=== PATIENT | female | born 1965 | race Caucasian/White ===

== ENCOUNTER → 2018-04-08 | Outpatient (CLI) | payer BC ==
--- NOTE | 2018-04-08 14:15 | US ---
EXAMINATION TYPE: US gallbladder DATE OF EXAM: 04/08/2018 COMPARISON: NONE CLINICAL HISTORY: 52-year-old female R10.11 RUQ Abdominal pain. TECHNIQUE: Multiple sonographic images of the right upper quadrant are obtained. FINDINGS: EXAM MEASUREMENTS: Liver Length: 14.2 cm Gallbladder Wall: 0.1 cm CBD: 0.3 cm Right Kidney: 10.4 x 3.3 x 4.9 cm Pancreas: Obscured by bowel gas Liver: Elongated hypoechoic area in the left lobe measuring 2.4 x 6.7 x 1.5 cm. Small cyst left lobe 1.1 x 1.0 x 0.8 cm. Mild to moderate increased echogenicity suggesting fatty infiltration. Gallbladder: wnl Evidence for sonographic Doran's sign: No CBD: wnl Right Kidney: cyst mid lateral 4.3 x 3.8 x 4.8 cm. No hydronephrosis. IMPRESSION: An elongated area of hypoechogenicity measuring 6.7 x 2.4 cm within the left liver lobe. Exact etiolo gy is unclear. Possible geographic fatty sparing or sequela of prior trauma. Multiphasic liver CT or MRI recommended to further evaluate.
--- NOTE | 2018-04-08 23:07 | BD ---
EXAMINATION TYPE: Axial Bone Density DATE OF EXAM: 04/08/2018 COMPARISON: NONE CLINICAL HISTORY: 52-year-old female screening for osteoporosis Height: 67 Weight: 205.4 FRAX RISK QUESTIONS: Alcohol (3 or more units per day): no Family History (Parent hip fracture): no Glucocorticoids (More than 3mos): no (Ex: prednisone, prednisolone, methylprednisolone, dexamethasone, and hydrocortisone). History of Fracture in Adulthood: no Secondary Osteoporosis: 1. Type 1 Diabetes: no 2. Hyperthyroidism: no 3. Menopause before 45: no 4. Malnutrition: no 5. Chronic liver disease: no Rheumatoid Arthritis: no Current Tobacco Use: no RISK FACTORS HISTORY OF: Family History of Osteoporosis: yes Active: yes Diet low in dairy products/other sources of calcium: yes Postmenopausal woman: age 46 Lost more than 2 inches in height since high school: just two inches MEDICATIONS: losartan, duloxetine, pantoprazole, norvasc, gabapentin, lipitor, lasix, potassium chloride, ultram, narco Additional History: EXAM MEASUREMENTS: Bone mineral densitometry was performed using the [employer] System. Bone mineral density as measured about the Lumbar spine is: ----- L1-L4(G/cm2): 1.501 T Score Values are as follows: ----- L2: 2.6 ----- L3: 2.6 ----- L4: 2.7 ----- L1-L4: 2.7 Bone mineral density : baseline Bone mineral density about the R hip (g/cm2): 1.069 Bone mineral density about the L hip (g/cm2): 1.095 T Score values are as follows: -----R Neck: 0.2 -----L Neck: 0.4 -----R Total: 0.4 -----L Total: 0.6 Bone mineral density : baseline IMPRESSION: Normal (Values between +1 and -1 indicate normal bone mass). Consider repeating this study in 5 year s or sooner if there is some new clinical indication. NOTE: T-SCORE=SD OF THE YOUNG ADULT MEAN.
--- NOTE | 2018-04-09 13:09 | MM ---
Reason for exam: screening (asymptomatic). Last mammogram was performed 1 year and 1 month ago. Physical Findings: A clinical breast exam by your physician is recommended on an annual basis and results should be correlated with mammographic findings. MG Screening Mammo w CAD Bilateral CC and MLO view(s) were taken. Prior study comparison: March 22, 2017, bilateral MG screening mammo w CAD. March 23, 2016, left breast MG work up mamm w CAD LT. There are scattered fibroglandular densities. There is a stable right upper outer quadrant mas with calcifications back to 2011, likely fibroadenoma. No suspicious abnormality. ASSESSMENT: Benign, BI-RAD 2 RECOMMENDATION: Routine screening mammogram of both breasts in 1 year.
== END | disposition home or self-care (01) ==
LOC: RADMAMWWP 09:58
PROVIDERS: ATTEND Obstetrics & Gynecology
DX: Z12.31 Encounter for screening mammogram for malignant neoplasm of breast (principal); R93.2 Abnormal findings on diagnostic imaging of liver and biliary tract; Z78.0 Asymptomatic menopausal state; R10.11 Right upper quadrant pain
CPT/HCPCS: 76705; 77067; 77080

== ENCOUNTER → 2018-11-19 | Outpatient (CLI) | payer BC ==
--- NOTE | 2018-11-19 22:58 | CT ---
EXAMINATION TYPE: CT abdomen pelvis wo con DATE OF EXAM: 11/19/2018 COMPARISON: None HISTORY: 53-year-old female R10.9, unspecified abdominal pain CT DLP: 1020.4 mGycm. Automated exposure control for dose reduction was used. TECHNIQUE: Contiguous axial scanning of the abdomen and pelvis without IV contrast. Coronal and sagit hyun reconstructions performed. FINDINGS: Heart normal size with trace pericardial effusion. Lung bases clear without pleural effusion. 1 cm hypodensity mid liver to small for accurate CT characterization, likely cyst. The liver is enlar ged measuring 21.2 cm with diffuse low-attenuation and areas of fatty sparing along the abbey hepatis and gallbladder fossa. Gallbladder, right adrenal gland,, spleen, and pancreas show no gross abnormality by noncontrast CT. There is a 4.7 cm cyst within the right kidney. Suspect an additional 1.6 cm anterior lower pole cyst . There is a contour protuberance along the lateral aspect of the left kidney that could represent a dr omedary hump or underlying mass. Nodule involving the left adrenal gland measures 2.6 cm. This shows low-attenuation of -8 Hounsfield units and a small intrinsic nodule of fat density. No dilated small bowel, free fluid, or free air. No mesenteric or retroperitoneal lymphadenopathy. Normal appendix. No significant stool burden. Mild sigmoid diverticulosis. Redundant sigmoid colon. Bladder is urine distended. Uterus and both ovaries are visualized. No abnormal fluid collection in t he pelvis or pelvic lymphadenopathy. Pelvic floor relaxation is noted. Bones: Mild degenerative changes at the hips. Multilevel moderate to advanced degenerative disc disea se lumbar spine with hypertrophic facet arthropathy and grade 1 retrolisthesis from L1 through L4 lev els. IMPRESSION: 1. Hepatomegaly (21.2 cm) with hepatic steatosis. Correlate with LFTs, lipid profile, and patient ri sk factors. 2. A 2.6 cm left adrenal nodule. Given the low density and intrinsic factor, lipid rich adrenal jeremías srini or adrenal myelolipoma are the differential considerations. 3. Focal contour protuberance along the lateral aspect of the left kidney could represent a solid ma ss or dromedary hump. Consider renal ultrasound to attempt further characterization. If this remains indeterminate on ultrasound, 3-6 month follow-up contrast enhanced CT can be performed. 4. Sigmoid diverticulosis without acute diverticulitis. 5. Pelvic floor relaxation. 6. Moderate to advanced degenerative disc disease with multilevel grade 1 spondylolistheses in the l umbar spine.
== END | disposition home or self-care (01) ==
LOC: RADCTMAIN 15:00
PROVIDERS: ATTEND Family Medicine
DX: K57.30 Diverticulosis of large intestine without perforation or abscess without bleeding (principal); K76.0 Fatty (change of) liver, not elsewhere classified
CPT/HCPCS: 74176

== ENCOUNTER 2019-02-20 08:28 | Day surgery (SDC) | payer BC ==
[2019-02-18 12:12] VITALS: BMI 33.4
[~2019-02-20 08:28] MED LIST: LACTATED RINGERS 1,000 ML IV SCH; LIDOCAINE 1% 20 ML VIAL (10MG/ML) FOR IV START INTRADERMA PRN
[2019-02-20 08:55] VITALS: RESP 16; TEMP 97
[2019-02-20] MEDS ORDERED: LIDOCAINE 1% INJ 10MG/ML (20 ML MDV) ONE (08:56)
[2019-02-20] MEDS ORDERED: PROPOFOL 10 MG/ML 20 ML VIAL IV ONE (08:56)
--- NOTE | 2019-02-20 09:23 | P.PCN ---
Date of Procedure: 02/20/19 Description of Procedure: BRIEF HISTORY: Patient is a 53-year-old, pleasant, female patient who presents for evaluation of epigastric pain. She reports being on Prevacid for one year with good symptom relief. She denies any reflux symptoms. She was recently switched to Protonix daily with continued epigastric pain. PROCEDURE PERFORMED: Esophagogastroduodenoscopy with biopsy. PREOPERATIVE DIAGNOSIS: Epigastric abdominal pain. ESTIMATED BLOOD LOSS: Minimal. IV sedation per anesthesia. PROCEDURE: After informed consent was obtained, the patient was brought into the endoscopy unit. IV sedation was administered by Anesthesia under continuous monitoring. Initially the Olympus GIF-190 video endoscope was inserted into the mouth. Esophagus intubated without any difficulty. It was gradually advanced into the stomach and duodenum and carefully examined. The bulb and the second part of the duodenum appeared normal with biopsies taken. The scope at this time was withdrawn to the stomach, adequately insufflated with air, and upon careful examination, mucosa of the antrum, body, cardia and the fundus appeared normal, except for some mild scattered punctate erythema suggestive of mild gastritis with biopsies taken of the antrum and body. The scope was then withdrawn into the esophagus. The GE junction was located at 44 cm from the incisors, with biopsies taken. The esophagus appeared normal. There were no erosions or ulcerations seen and the patient tolerated the procedure well. IMPRESSION: 1. Mild gastritis antrum and body, biopsied. 2. Biopsies of the duodenum and GE junction/distal esophagus. RECOMMENDATIONS: The findings of this examination were discussed with the patient and her mother. Okay to resume medication. Continue Protonix daily. Await pathology from biopsies
[2019-02-20 09:39] VITALS: BP 122/80; PULSE 75
== END 2019-02-20 10:11 | disposition home or self-care (01) ==
LOC: ORWHC2ENDO 08:28
PROVIDERS: ATTEND Internal Medicine
DX: K29.50 Unspecified chronic gastritis without bleeding (principal); K21.9 Gastro-esophageal reflux disease without esophagitis; I10 Essential (primary) hypertension; J45.909 Unspecified asthma, uncomplicated; F17.210 Nicotine dependence, cigarettes, uncomplicated; F32.9 Major depressive disorder, single episode, unspecified; Z86.73 Personal history of transient ischemic attack (TIA), and cerebral infarction without residual deficits; R32 Unspecified urinary incontinence; Z79.82 Long term (current) use of aspirin; Z88.0 Allergy status to penicillin; Z79.891 Long term (current) use of opiate analgesic; Z91.013 Allergy to seafood; Z79.899 Other long term (current) drug therapy
CPT/HCPCS: 88305; 43239; J2001; J2704

== ENCOUNTER → 2019-05-27 | Outpatient (CLI) | payer BC ==
--- NOTE | 2019-05-29 10:40 | MM ---
Reason for exam: screening (asymptomatic). Last mammogram was performed 1 year and 2 months ago. History: Patient is postmenopausal. Physical Findings: A clinical breast exam by your physician is recommended on an annual basis and results should be correlated with mammographic findings. MG Screening Mammo w CAD Bilateral CC and MLO view(s) were taken. Prior study comparison: April 08, 2018, bilateral MG screening mammo w CAD. March 22, 2017, bilateral MG screening mammo w CAD. There are scattered fibroglandular densities. No significant changes when compared with prior studies. ASSESSMENT: Benign, BI-RAD 2 RECOMMENDATION: Routine screening mammogram of both breasts in 1 year.
== END | disposition home or self-care (01) ==
LOC: RADMAMWWP 15:19
PROVIDERS: ATTEND Obstetrics & Gynecology
DX: Z12.31 Encounter for screening mammogram for malignant neoplasm of breast (principal)
CPT/HCPCS: 77067

== ENCOUNTER 2020-07-27 15:04 | Inpatient (IN) | payer BC ==
[2020-07-27 15:15] LABS: Glucose,Whole Blood >600 mg/dL (75-99)
[2020-07-27] MEDS ORDERED: SODIUM CHLORIDE 0.9% 1,000 ML IV STA (15:31)
[2020-07-27 15:59] LABS: Basophils # (A) 0.1 k/uL (0-0.2); Basophils % (A) 1 %; Eosinophils # (A) 0.4 k/uL (0-0.7); Eosinophils % (A) 3 %; HGB 15.9 gm/dL (11.4-16.0); Lymphocytes # (A) 2.5 k/uL (1.0-4.8); Lymphocytes % (A) 21 %; MCH 31.6 pg (25.0-35.0); MCHC 33.2 g/dL (31.0-37.0); MCV 95.1 fL (80.0-100.0); Mean Platelet Volume 9.4; Monocytes # (A) 0.6 k/uL (0-1.0); Monocytes % (A) 5 %; Neutrophils # (A) 8.6 k/uL (1.3-7.7); Neutrophils % (A) 70 %; Platelet Count 194 k/uL (150-450); RBC 5.05 m/uL (3.80-5.40); RDW 13.3 % (11.5-15.5); WBC 12.4 k/uL (3.8-10.6)
[2020-07-27 16:11] LABS: ALT 38 U/L (4-34); AST 37 U/L (14-36); African American GFR (CKD) 63 (>60 ml/min/1.73 sqM); Albumin 4.4 g/dL (3.5-5.0); Alkaline Phosphatase 179 U/L (38-126); Anion Gap 14 mmol/L; Blood Urea Nitrogen 12 mg/dL (7-17); Calcium 10.2 mg/dL (8.4-10.2); Carbon Dioxide 26 mmol/L (22-30); Chloride 85 mmol/L (98-107); Magnesium 2.3 mg/dL (1.6-2.3); Non-African American GFR(CKD) 55 (>60 ml/min/1.73 sqM); Phosphorus 4.2 mg/dL (2.5-4.5); Potassium 4.3 mmol/L (3.5-5.1); Sodium 125 mmol/L (137-145); Total Bilirubin 0.8 mg/dL (0.2-1.3); Total Protein 6.8 g/dL (6.3-8.2)
[2020-07-27 16:19] LABS: Partial Thromboplastin Time 22.1 sec (22.0-30.0); Prothrombin Time 10.4 sec (9.0-12.0)
--- NOTE | 2020-07-27 16:22 | CT ---
EXAMINATION TYPE: CT brain wo con DATE OF EXAM: 07/27/2020 COMPARISON: CT brain 12/04/2011 HISTORY: Vision changes, confusion and dizziness. CT DLP: 1058.4 mGycm Automated exposure control for dose reduction was used. Helical imaging through the brain. FINDINGS: There is cortical atrophy present. No hemorrhage or hydrocephalus. Corpus callosum, pituitary, cervic al medullary junction within normal limits. Calvarium is intact. Paranasal sinuses and mastoid air ce lls are well aerated. Periventricular white matter shows some questionable subtle patchy low attenuat ion, axial image #36 posterior parietal region. IMPRESSION: STABLE EXAM, NO ACUTE ABNORMALITY IS EVIDENT. CORTICAL ATROPHY. QUESTION SOME WHITE MATTER DEMYELINAT ION. CONSIDER BRAIN MRI.
[2020-07-27 16:24] LABS: Glucose 745 mg/dL (74-99)
--- NOTE | 2020-07-27 16:24 | XR ---
EXAMINATION TYPE: XR chest 2V DATE OF EXAM: 07/27/2020 COMPARISON: 12/04/2011 TECHNIQUE: PA and lateral views submitted. HISTORY: Dizziness FINDINGS: The lungs are clear and there is no pneumothorax, pleural effusion, or focal pneumonia. Heart size normal. No overt failure. Atherosclerotic change aorta. Diffuse osteopenia. IMPRESSION: 1. No acute process.
[2020-07-27] MEDS ORDERED: INSULIN REGULAR 100 UNIT/ML VIAL IV ONE (16:48)
[2020-07-27] MEDS ORDERED: SODIUM CHLORIDE 0.9% 1,000 ML IV ONE (16:49)
[2020-07-27 17:06] LABS: Appearance,Urine Clear (Clear); Bilirubin,Urine Negative (Negative); Blood,Urine Negative (Negative); Color,Urine Light Yellow; Glucose,Urine (UA) 4+ (Negative); Ketones,Urine Negative (Negative); Leukocyte Esterase,Urine Negative (Negative); Nitrite,Urine Negative (Negative); PH, Urine 6.5 (5.0-8.0); Protein,Urine Negative (Negative); Specific Gravity,Urine 1.016 (1.001-1.035); Urobilinogen,Urine <2.0 mg/dL (<2.0)
[2020-07-27] MEDS ORDERED: NALOXONE 0.4 MG/ML 1 ML VIAL IV PRN (17:06)
--- NOTE | 2020-07-27 17:09 | ED ---
Dizziness HPI <Shay Avalos - Last Filed: 07/27/20 17:19> - General Source: patient Mode of arrival: ambulatory Limitations: no limitations <Lelia Stein - Last Filed: 07/27/20 22:04> - General Chief Complaint: Dizziness Stated Complaint: Abnormal labs Time Seen by Provider: 07/27/20 15:25 - History of Present Illness Initial Comments: 55 or female presenting today for chief complaint of dizziness visual changes 4 months. Patient states she has just felt off for the past 4 months she's had increased thirst as well as increased urination for the past few weeks. Patient states that she has noticed gradually since April that her vision has become worse and worse she states it is even hard to see people at this time. She denies complete vision loss. Patient denies diplopia headache she denies nausea vomiting of dull pain chest pain or shortness of breath. Patient denies any leg swelling fevers congestion and cough. Patient states that she has had no sensation deficits or localized weakness but states she just feels general malaise. Remaining review system negative upon arrival patient appears nontoxic distress. She states she was over at her primary care office prior to here and had a very high glucose and sent here for further evaluation.patient states she had no previous diagnosis of diabetes. (Lelia Stein) - Related Data Home Medications Medication Instructions Recorded Confirmed Aspirin 325 mg PO DAILY 02/18/19 07/27/20 Atorvastatin [Lipitor] 20 mg PO HS 02/18/19 07/27/20 DULoxetine HCL [Cymbalta] 60 mg PO BID 02/18/19 07/27/20 Furosemide [Lasix] 40 mg PO DAILY 02/18/19 07/27/20 HYDROcodone/APAP 7.5-325MG [[place] 1 tab PO BID PRN 02/18/19 07/27/20 7.5-325] Losartan Potassium [Cozaar] 100 mg PO DAILY 02/18/19 07/27/20 Oxybutynin Chloride 5 mg PO BID 02/18/19 07/27/20 Pantoprazole [Protonix] 40 mg PO DAILY 02/18/19 07/27/20 Potassium Chloride [K-Tab ER] 20 meq PO DAILY 02/18/19 07/27/20 Propranolol HCl 20 mg PO TID 02/18/19 07/27/20 amLODIPine [Norvasc] 10 mg PO DAILY 02/18/19 07/27/20 traMADol HCl [Ultram] 50 mg PO BID PRN 02/18/19 07/27/20 Cyanocobalamin (Vitamin B-12) 1,000 mcg PO DAILY 07/27/20 07/27/20 [Vitamin B-12] Nystatin/Triamcin 1 applicate TOPICAL BID PRN 07/27/20 07/27/20 [Nystatin-Triamcinolone Cream] Allergies Allergy/AdvReac Type Severity Reaction Status Date / Time Penicillins Allergy Anaphylaxis Verified 07/27/20 17:02 shellfish derived [Shellfish] Allergy Anaphylaxis Verified 07/27/20 17:02 Review of Systems ROS Other: All systems not noted in ROS Statement are negative. <Shay Avalos - Last Filed: 07/27/20 17:19> ROS Other: All systems not noted in ROS Statement are negative. <Lelia Stein - Last Filed: 07/27/20 22:04> ROS Statement: Those systems with pertinent positive or pertinent negative responses have been documented in the HPI. Past Medical History Past Medical History: Asthma, CVA/TIA, GERD/Reflux, Hypertension Additional Past Medical History / Comment(s): CVA x2, urinary incontinence History of Any Multi-Drug Resistant Organisms: None Reported Past Surgical History: Hernia Repair, Orthopedic Surgery, Tubal Ligation, Uterine Ablation Additional Past Surgical History / Comment(s): umb. hernia, lt knee bone spurs Past Anesthesia/Blood Transfusion Reactions: No Reported Reaction Past Psychological History: Depression Smoking Status: Current every day smoker Past Alcohol Use History: None Reported Past Drug Use History: None Reported - Past Family History Mother Family Medical History: No Reported History <Lelia Stein - Last Filed: 07/27/20 22:04> General Exam Limitations: no limitations <Lelia Stein - Last Filed: 07/27/20 22:04> - General Exam Comments Initial Comments: General: The patient is awake and alert, in no distress Eye: +3 mm pupils are equal, round and reactive to light, extra-ocular movements are intact. No nystagmus. There is normal conjunctiva bilaterally. No signs of icterus. Ears, nose, mouth and throat: There are moist mucous membranes. white chunks in mouth/scrap off without bleeding. Neck: The neck is supple, there is no tenderness or JVD. Cardiovascular: There is a regular rate and rhythm. No murmur, rub or gallop is appreciated. Respiratory: Lungs are clear to auscultation, respirations are non-labored, b reath sounds are equal. No wheezes, stridor, rales, or rhonchi. Gastrointestinal: Soft, non-distended, non-tender abdomen without masses or organomegaly noted. There is no rebound or guarding present. No CVA tenderness. Musculoskeletal: Normal ROM, no tenderness. Strength 5/5. Sensation intact. Pulses equal bilaterally 2+. Neurological: A&O x 3. CN II-XII intact-except decreased visual acuity, There are no obvious motor or sensory deficits. Coordination appears grossly intact. Speech is normal. Skin: Skin is warm and dry and no rashes or lesions are noted. No LE edema or calf pain. Psychiatric: Cooperative, appropriate mood & affect, normal judgment. (Lelia Stein) Course Vital Signs 07/27/20 07/27/20 07/27/20 15:06 17:00 19:41 Temperature 98.1 F 98.1 F Pulse Rate 92 84 89 Respiratory 18 18 20 Rate Blood Pressure 116/78 124/68 119/72 O2 Sat by Pulse 98 98 97 Oximetry 07/27/20 07/27/20 20:20 20:47 Temperature 98.0 F Pulse Rate 89 91 Respiratory 20 20 Rate Blood Pressure 130/80 130/80 O2 Sat by Pulse 98 97 Oximetry Medical Decision Making - Lab Data Result diagrams: 07/27/20 15:31 07/27/20 15:31 <Shay Avalos - Last Filed: 07/27/20 17:19> - Lab Data Result diagrams: 07/27/20 15:31 07/27/20 15:31 <Lelia Stein - Last Filed: 07/27/20 22:04> - Medical Decision Making Patient reevaluated and reexamined by myself, Dr. Avalos. I agree with PAs findings. This includes diagnostic interpretation and treatment plan. Patient updated on results and plan. Case was discussed with Dr. John, who will admit coming from Dr. Zhang. Patient did complain of frequency with urination and urinary. Patient also had some lightheadedness. (Shay Avalos) 55yo male presents today for chief complaint of blurred vision general malaise and lightheadedness. Patient felt significantly elevated glucose. patient was hydrated and given IV insulin which helped decrease the levels. Patient has minimal anion gap elevation. She is ketone and acetone negative. Patient's symptoms improved with hydration (general malaise). Patient CT brain (-) no focal neurological deficits. Denies chest pain or dyspnea. EKG no acute changes, CXR no acute findings. Patient potassium, magensium and phosphorus is WNL. Patient will be admitted for monitoring and hyponatremia. Patient agreeable to this care plan and adission. Dr Avalos agreeable to care plan. (Lelia Stein) - Lab Data Lab Results 07/27/20 07/27/20 07/27/20 Range/Units 15:14 15:14 15:31 WBC 12.4 H (3.8-10.6) k/uL RBC 5.05 (3.80-5.40) m/uL Hgb 15.9 (11.4-16.0) gm/dL Hct 48.0 H (34.0-46.0) % MCV 95.1 (80.0-100.0) fL MCH 31.6 (25.0-35.0) pg MCHC 33.2 (31.0-37.0) g/dL RDW 13.3 (11.5-15.5) % Plt Count 194 (150-450) k/uL MPV 9.4 Neutrophils % 70 % Lymphocytes % 21 % Monocytes % 5 % Eosinophils % 3 % Basophils % 1 % Neutrophils # 8.6 H (1.3-7.7) k/uL Lymphocytes # 2.5 (1.0-4.8) k/uL Monocytes # 0.6 (0-1.0) k/uL Eosinophils # 0.4 (0-0.7) k/uL Basophils # 0.1 (0-0.2) k/uL PT (9.0-12.0) sec INR (<1.2) APTT (22.0-30.0) sec Sodium (137-145) mmol/L Potassium (3.5-5.1) mmol/L Chloride (98-107) mmol/L Carbon Dioxide (22-30) mmol/L Anion Gap mmol/L BUN (7-17) mg/dL Creatinine (0.52-1.04) mg/dL Est GFR (CKD-EPI)AfAm (>60 ml/min/1.73 sqM) Est GFR (CKD-EPI)NonAf (>60 ml/min/1.73 sqM) Glucose (74-99) mg/dL POC Glucose (mg/dL) >600 H >600 H (75-99) mg/dL POC Glu Estate Administrator ID Estonian, Bev Estonian, Bev Lactic Ac Sepsis Rflx Plasma Lactic Acid Juanjose (0.7-2.0) mmol/L Calcium (8.4-10.2) mg/dL Phosphorus (2.5-4.5) mg/dL Magnesium (1.6-2.3) mg/dL Total Bilirubin (0.2-1.3) mg/dL AST (14-36) U/L ALT (4-34) U/L Alkaline Phosphatase (38-126) U/L Troponin I (0.000-0.034) ng/mL Total Protein (6.3-8.2) g/dL Albumin (3.5-5.0) g/dL Urine Color Urine Appearance (Clear) Urine pH (5.0-8.0) Ur Specific [place] (1.001-1.035) Urine Protein (Negative) Urine Glucose (UA) (Negative) Urine Ketones (Negative) Urine Blood (Negative) Urine Nitrite (Negative) Urine Bilirubin (Negative) Urine Urobilinogen (<2.0) mg/dL Ur Leukocyte Esterase (Negative) Acetone, Qual (Negative) 07/27/20 07/27/20 07/27/20 Range/Units 15:31 15:31 15:31 WBC (3.8-10.6) k/uL RBC (3.80-5.40) m/uL Hgb (11.4-16.0) gm/dL Hct (34.0-46.0) % MCV (80.0-100.0) fL MCH (25.0-35.0) pg MCHC (31.0-37.0) g/dL RDW (11.5-15.5) % Plt Count (150-450) k/uL MPV Neutrophils % % Lymphocytes % % Monocytes % % Eosinophils % % Basophils % % Neutrophils # (1.3-7.7) k/uL Lymphocytes # (1.0-4.8) k/uL Monocytes # (0-1.0) k/uL Eosinophils # (0-0.7) k/uL Basophils # (0-0.2) k/uL PT 10.4 (9.0-12.0) sec INR 1.0 (<1.2) APTT 22.1 (22.0-30.0) sec Sodium 125 L (137-145) mmol/L Potassium 4.3 (3.5-5.1) mmol/L Chloride 85 L (98-107) mmol/L Carbon Dioxide 26 (22-30) mmol/L Anion Gap 14 mmol/L BUN 12 (7-17) mg/dL Creatinine 1.12 H (0.52-1.04) mg/dL Est GFR (CKD-EPI)AfAm 63 (>60 ml/min/1.73 sqM) Est GFR (CKD-EPI)NonAf 55 (>60 ml/min/1.73 sqM) Glucose 745 H* (74-99) mg/dL POC Glucose (mg/dL) (75-99) mg/dL POC Glu Estate Administrator ID Lactic Ac Sepsis Rflx Plasma Lactic Acid Juanjose 4.0 H* (0.7-2.0) mmol/L Calcium 10.2 (8.4-10.2) mg/dL Phosphorus 4.2 (2.5-4.5) mg/dL Magnesium 2.3 (1.6-2.3) mg/dL Total Bilirubin 0.8 (0.2-1.3) mg/dL AST 37 H (14-36) U/L ALT 38 H (4-34) U/L Alkaline Phosphatase 179 H (38-126) U/L Troponin I (0.000-0.034) ng/mL Total Protein 6.8 (6.3-8.2) g/dL Albumin 4.4 (3.5-5.0) g/dL Urine Color Urine Appearance (Clear) Urine pH (5.0-8.0) Ur Specific [place] (1.001-1.035) Urine Protein (Negative) Urine Glucose (UA) (Negative) Urine Ketones (Negative) Urine Blood (Negative) Urine Nitrite (Negative) Urine Bilirubin (Negative) Urine Urobilinogen (<2.0) mg/dL Ur Leukocyte Esterase (Negative) Acetone, Qual Negative (Negative) 07/27/20 07/27/20 07/27/20 Range/Units 15:31 16:24 16:58 WBC (3.8-10.6) k/uL RBC (3.80-5.40) m/uL Hgb (11.4-16.0) gm/dL Hct (34.0-46.0) % MCV (80.0-100.0) fL MCH (25.0-35.0) pg MCHC (31.0-37.0) g/dL RDW (11.5-15.5) % Plt Count (150-450) k/uL MPV Neutrophils % % Lymphocytes % % Monocytes % % Eosinophils % % Basophils % % Neutrophils # (1.3-7.7) k/uL Lymphocytes # (1.0-4.8) k/uL Monocytes # (0-1.0) k/uL Eosinophils # (0-0.7) k/uL Basophils # (0-0.2) k/uL PT (9.0-12.0) sec INR (<1.2) APTT (22.0-30.0) sec Sodium (137-145) mmol/L Potassium (3.5-5.1) mmol/L Chloride (98-107) mmol/L Carbon Dioxide (22-30) mmol/L Anion Gap mmol/L BUN (7-17) mg/dL Creatinine (0.52-1.04) mg/dL Est GFR (CKD-EPI)AfAm (>60 ml/min/1.73 sqM) Est GFR (CKD-EPI)NonAf (>60 ml/min/1.73 sqM) Glucose (74-99) mg/dL POC Glucose (mg/dL) (75-99) mg/dL POC Glu Estate Administrator ID Lactic Ac Sepsis Rflx Y Plasma Lactic Acid Juanjose (0.7-2.0) mmol/L Calcium (8.4-10.2) mg/dL Phosphorus (2.5-4.5) mg/dL Magnesium (1.6-2.3) mg/dL Total Bilirubin (0.2-1.3) mg/dL AST (14-36) U/L ALT (4-34) U/L Alkaline Phosphatase (38-126) U/L Troponin I <0.012 (0.000-0.034) ng/mL Total Protein (6.3-8.2) g/dL Albumin (3.5-5.0) g/dL Urine Color Light Yellow Urine Appearance Clear (Clear) Urine pH 6.5 (5.0-8.0) Ur Specific [place] 1.016 (1.001-1.035) Urine Protein Negative (Negative) Urine Glucose (UA) 4+ H (Negative) Urine Ketones Negative (Negative) Urine Blood Negative (Negative) Urine Nitrite Negative (Negative) Urine Bilirubin Negative (Negative) Urine Urobilinogen <2.0 (<2.0) mg/dL Ur Leukocyte Esterase Negative (Negative) Acetone, Qual (Negative) Disposition <Shay Avalos - Last Filed: 07/27/20 17:19> Is patient prescribed a controlled substance at d/c from ED?: No Time of Disposition: 17:09 Decision to Admit Reason: Admit from EC Decision Date: 07/27/20 Decision Time: 17:09 <Lelia Stein - Last Filed: 07/27/20 22:04> Clinical Impression: Hyperglycemia, Hyponatremia Disposition: ADMITTED IP TO THIS HOSP Condition: Stable
[2020-07-27] MEDS: SODIUM CHLORIDE 0.9% 1,000 ML IV SCH (17:11)
[2020-07-27 17:54] LABS: Glucose,Whole Blood 472 mg/dL (75-99)
[2020-07-27] MEDS ORDERED: INSULIN REGULAR 100 UNIT/ML VIAL SQ ONE ×2 (18:34→18:50)
[2020-07-27 18:42] LABS: Glucose,Whole Blood 375 mg/dL (75-99)
[2020-07-27 21:52] LABS: Glucose,Whole Blood 293 mg/dL (75-99)
[2020-07-27] MEDS: ASPIRIN 325 MG TAB PO SCH (22:02)
[2020-07-27] MEDS: DULoxetine HCL 60 MG CAPSULE.DR PO SCH (22:02)
[2020-07-27] MEDS: INSULIN ASPART (NovoLOG) 100 UNIT/ML VIAL SQ SCH (22:02)
[2020-07-27] MEDS: ATORVASTATIN 20 MG TAB PO SCH (22:02)
[2020-07-27] MEDS: amLODIPine 10 MG TAB PO SCH (22:02)
[2020-07-27] MEDS: OXYBUTYNIN CHLORIDE 5 MG TAB PO SCH (22:03)
[2020-07-27] MEDS: PROPRANOLOL 20 MG TAB PO SCH (22:04)
[2020-07-27] MEDS: HYDROcodone/APAP 7.5-325MG 1 EACH TAB PO PRN (23:47)
[2020-07-28 02:11] LABS: Glucose,Whole Blood 293 mg/dL (75-99)
[2020-07-28 06:31] LABS: Glucose,Whole Blood 281 mg/dL (75-99)
[2020-07-28] MEDS: INSULIN ASPART (NovoLOG) 100 UNIT/ML VIAL SQ SCH ×4 (06:45→20:06)
[2020-07-28] MEDS ORDERED: FUROSEMIDE 40 MG TAB PO SCH (09:00)
[2020-07-28] MEDS: DULoxetine HCL 60 MG CAPSULE.DR PO SCH ×2 (09:04→20:06)
[2020-07-28] MEDS: OXYBUTYNIN CHLORIDE 5 MG TAB PO SCH ×2 (09:04→20:04)
[2020-07-28] MEDS: PANTOPRAZOLE 40 MG TABLET PO SCH (09:04)
[2020-07-28] MEDS: HYDROcodone/APAP 7.5-325MG 1 EACH TAB PO PRN (09:04)
[2020-07-28] MEDS: PROPRANOLOL 20 MG TAB PO SCH ×3 (09:05→21:33)
[2020-07-28] MEDS: amLODIPine 10 MG TAB PO SCH (09:08)
[2020-07-28] MEDS: ASPIRIN 325 MG TAB PO SCH (09:08)
[2020-07-28] MEDS ORDERED: FLUCONAZOLE 100 MG TAB PO ONE (11:03)
[2020-07-28] MEDS ORDERED: NICOTINE 7MG/24HR PATCH TRANSDERM SCH (11:15)
[2020-07-28 11:54] LABS: Glucose,Whole Blood 362 mg/dL (75-99)
[2020-07-28] MEDS: metFORMIN 500 MG TAB PO SCH ×2 (12:04→18:40)
[2020-07-28] MEDS: ENOXAPARIN 40 MG/0.4 ML SYRINGE SQ SCH (12:05)
[2020-07-28 14:32] VITALS: BMI 27.0
[2020-07-28 16:01] LABS: Hemoglobin A1C 16.2 % (4.0-6.0)
--- NOTE | 2020-07-28 16:19 | P.CNNES ---
History of Present Illness Consult date: 07/28/20 Requesting physician: Lelia Stein Reason for Consult: White matter changes? History of Present Illness: Patient is a 55-year-old female came to the hospital yesterday at 3:04 PM for dizziness and abnormal labs. She has been complaining of dizziness and visual changes for 4 months. She has increased polyuria and polydipsia in the last few weeks. Denies any focal symptoms. Patient states that she feels her eyes were moving crisscross, very blurred vision. Sometimes double vision. She denies any slurred speech facial droop any focal numbness tingling or weakness. She was noticing issues with the balance. Vital signs on arrival blood pressure 116/78, pulse rate 92, temperature 98.1. CT head showed stable exam. No acute abnormality is evident, cortical atrophy, question some white matter demyelination, consider brain MRI. Chest x-ray showed no acute changes. EKG shows normal sinus rhythm, right atrial enlargement. Low voltage QRS. Possible inferior infarct, age undetermined. Blood test shows WBC 12.4 hemoglobin 15.9, platelets 194. PT/PTT normal, sodium 125, potassium normal, glucose 745 (no history of diabetes) normal renal functions and creatinine borderline elevated 1.12. AST is 37, ALT 38, both minimally elevated. Troponin negative. UA showed 4+ glucose. Acetone negative. Patient's previous MRI of the lumbar spine from 12/24/2014 showed broad-based disc protrusion at L1-2 and L2-3. Diffuse facet joint arthropathy. This is causing lateral impression upon the thecal sac at T12-L1 level. Wearing degrees of central canal stenosis, most marked at L4 5, where there is reported moderate to severe central canal stenosis. MRI of the cervical spine also from 12/24/2014 revealed broad-based disc protrusion at C3 4 and C5 6. No significant spinal stenosis. Patient is currently on aspirin 325 mg, Lipitor 20 mg. Also on insulin. At home patient takes tramadol, propranolol 20 mg 3 times a day, Lasix 40 mg, Lipitor 20 mg, amlodipine, [place], oxybutynin, Cymbalta 60 mg twice a day, aspirin 325 mg, B12 1000 g daily and gabapentin 300 mg twice a day. Patient started smoking since she was age 9. She has smoked 1 pack per day since age 17, just cut back to 3-4 cigarettes per day since May 2020. Denies any alcohol or drug use. She has hypertension since last 34 years. She does take aspirin 81 mg daily. Review of Systems As above in detail. All other review of systems unremarkable. Past Medical History Past Medical History: Asthma, CVA/TIA, GERD/Reflux, Hypertension Additional Past Medical History / Comment(s): CVA x2, urinary incontinence History of Any Multi-Drug Resistant Organisms: None Reported Past Surgical History: Hernia Repair, Orthopedic Surgery, Tubal Ligation, Uterine Ablation Additional Past Surgical History / Comment(s): umb. hernia, lt knee bone spurs Past Anesthesia/Blood Transfusion Reactions: No Reported Reaction Past Psychological History: Depression Smoking Status: Current every day smoker Past Alcohol Use History: None Reported Additional Past Alcohol Use History / Comment(s): smoker since 05/22- Past Drug Use History: None Reported - Past Family History Mother Family Medical History: No Reported History Medications and Allergies Home Medications Medication Instructions Recorded Confirmed Type Aspirin 325 mg PO DAILY 02/18/19 07/27/20 History Atorvastatin [Lipitor] 20 mg PO HS 02/18/19 07/27/20 History DULoxetine HCL [Cymbalta] 60 mg PO BID 02/18/19 07/27/20 History Furosemide [Lasix] 40 mg PO DAILY 02/18/19 07/27/20 History HYDROcodone/APAP 7.5-325MG [[place] 1 tab PO BID PRN 02/18/19 07/27/20 History 7.5-325] Losartan Potassium [Cozaar] 100 mg PO DAILY 02/18/19 07/27/20 History Oxybutynin Chloride 5 mg PO BID 02/18/19 07/27/20 History Pantoprazole [Protonix] 40 mg PO DAILY 02/18/19 07/27/20 History Potassium Chloride [K-Tab ER] 20 meq PO DAILY 02/18/19 07/27/20 History Propranolol HCl 20 mg PO TID 02/18/19 07/27/20 History amLODIPine [Norvasc] 10 mg PO DAILY 02/18/19 07/27/20 History traMADol HCl [Ultram] 50 mg PO BID PRN 02/18/19 07/27/20 History Cyanocobalamin (Vitamin B-12) 1,000 mcg PO DAILY 07/27/20 07/27/20 History [Vitamin B-12] Nystatin/Triamcin 1 applicate TOPICAL BID PRN 07/27/20 07/27/20 History [Nystatin-Triamcinolone Cream] Gabapentin [Neurontin] 300 mg PO BID 07/28/20 07/28/20 History Allergies Allergy/AdvReac Type Severity Reaction Status Date / Time Penicillins Allergy Anaphylaxis Verified 07/27/20 17:02 shellfish derived [Shellfish] Allergy Anaphylaxis Verified 07/27/20 17:02 Physical Examination - Vital Signs Vital Signs: Vital Signs Temp Pulse Pulse Resp BP BP Pulse Ox 07/28/20 07:34 95 07/28/20 03:39 97.8 F 78 16 108/61 95 07/28/20 02:24 16 07/27/20 23:35 98.2 F 81 16 89/57 96 07/27/20 21:45 98.3 F 99 18 130/81 98 07/27/20 20:47 98.0 F 91 20 130/80 97 07/27/20 20:20 89 20 130/80 98 07/27/20 19:41 89 20 119/72 97 07/27/20 17:00 98.1 F 84 18 124/68 98 07/27/20 15:06 98.1 F 92 18 116/78 98 Intake and Output 07/27/20 07/28/20 07/28/20 22:59 06:59 14:59 Other: Voiding Method Toilet Toilet # Voids 1 1 Weight 82.372 kg 83.1 kg On examination patient is a middle aged female in no acute distress. Patient is alert and awake fully oriented. Speech and language functions are normal. Attention, concentration and fund of knowledge is adequate. On cranial examination pupils are round and reactive to light, visual jeronimo are full on confrontation with no neglect. Extraocular muscles are intact with no nystagmus. Face is symmetric, tongue protrudes to the midline. Palatal elevation and sensation normal, hearing and shoulder shrug normal. Facial sensations normal. Patient has poor dentition. On muscle strength testing there is no pronator drift and the strength is normal in arms and legs distally and proximally reflexes are 1+ in the upper limbs, 2+ in the lower limbs and plantars downgoing. Sensory to touch is equal with no neglect. No ataxia for [id number] testing, tone and bulk of muscles normal. On general examination I did not hear any obvious bruit, S1 and S2 audible, abdomen soft and nontender. Chest is clear. Results - Laboratory Findings CBC and BMP: 07/27/20 15:31 07/27/20 15:31 Abnormal Lab Findings: Abnormal Labs 07/27/20 07/27/20 07/27/20 15:14 15:14 15:31 WBC 12.4 H Hct 48.0 H Neutrophils # 8.6 H Sodium Chloride Creatinine Glucose POC Glucose (mg/dL) >600 H >600 H Plasma Lactic Acid Juanjose AST ALT Alkaline Phosphatase Urine Glucose (UA) 07/27/20 07/27/20 07/27/20 15:31 15:31 16:58 WBC Hct Neutrophils # Sodium 125 L Chloride 85 L Creatinine 1.12 H Glucose 745 H* POC Glucose (mg/dL) Plasma Lactic Acid Juanjose 4.0 H* AST 37 H ALT 38 H Alkaline Phosphatase 179 H Urine Glucose (UA) 4+ H 07/27/20 07/27/20 07/27/20 17:52 18:41 21:51 WBC Hct Neutrophils # Sodium Chloride Creatinine Glucose POC Glucose (mg/dL) 472 H 375 H 293 H Plasma Lactic Acid Juanjose AST ALT Alkaline Phosphatase Urine Glucose (UA) 07/28/20 07/28/20 02:10 06:30 WBC Hct Neutrophils # Sodium Chloride Creatinine Glucose POC Glucose (mg/dL) 293 H 281 H Plasma Lactic Acid Juanjose AST ALT Alkaline Phosphatase Urine Glucose (UA) Assessment and Plan Assessment: * Lightheadedness, dizziness, blurred vision and visual disturbances likely due to uncontrolled newly diagnosed diabetes. Her blood sugar was 745, and A1c is 16.2. Current neurological examination is nonfocal. * CT head showing small vessel disease, likely from multiple vascular risk factors including long-standing history of hypertension, uncontrolled diabetes, and chronic tobacco use. Plan: * Continue aspirin 81 mg daily. Patient has been started on Lipitor 20 mg. We will check fasting a.m. lipid panel. * Patient was strongly recommended complete tobacco cessation. * Treatment of diabetes as per IM. * Patient states her visual symptoms and dizziness has improved already. No other neurological workup indicated.
[2020-07-28] MEDS: SODIUM CHLORIDE 0.9% 1,000 ML IV SCH ×2 (16:34→21:33)
[2020-07-28 17:02] LABS: Glucose,Whole Blood 228 mg/dL (75-99)
--- NOTE | 2020-07-28 19:35 | P.HPIM ---
History of Present Illness H&P Date: 07/28/20 Chief Complaint: Not feeling well History of presenting complaint: This is a 55-year-old patient of Dr. jacobs. Chronic stable medical conditions include peripheral neuropathy with numbness and tingling in the feet, hyperlipidemia, depression, chronic low back pain, GERD, urinary incontinence, hypertension. For quite a few days patient has been generally feeling off. Just not feeling right having increased urine output and feeling very thirsty. Also had some weight loss. Went to see a family doctor. Vision was blurry. No fever no chills. Syndrome of the ER. Blood glucose was 745. Serum acetone was negative. Patient is put on IV fluids and insulin. Review of systems: GEN.: Tired. Loss EYES: None HEENT: None NECK: None RESPIRATORY: None CARDIOVASCULAR: None GASTROINTESTINAL: None GENITOURINARY: [Polyuria MUSCULOSKELETAL: Aches and pains in many joints LYMPHATICS: None HEMATOLOGICAL: None PSYCHIATRY: Slightly anxious NEUROLOGICAL: None Past medical history to include: COPD, prior stroke, GERD, hypertension, urinary incontinence, peripheral ne uropathy, hyperlipidemia, depression, low back pain, GERD, hypertension Social history: Long-standing smoker currently down to a few cigarettes a day. Smoked for 46 years. Lives with her and mother. No alcohol Family history: Reviewed, noncontributory to presentation Physical examination: VITAL SIGNS: 98.6, 92, 18, 116/78, 98% on room air GENERAL: BMI 27.1, laying in bed, awake. EYES: Pupils equal. Conjunctiva normal. HEENT: External appearance of nose and ears normal, oral cavity few white spots. NECK: JVD not raised; masses not palpable. HEART: First and second heart sounds are normal; no edema. LUNGS: Respiratory rate normal; clear to auscultation. ABDOMEN: Soft, nontender, liver spleen not palpable, no masses palpable. PSYCH: Alert and oriented x3; mood and affect normal. NEUROLOGICAL: Cranial nerves grossly intact; no facial asymmetry, power and sensation grossly intact. LYMPHATICS: No lymph nodes palpable in the axilla and neck INVESTIGATIONS, reviewed in the clinical context: WBC 12.4 hemoglobin 13.9 platelets 194 sodium 125 potassium 4.3 creatinine 1.12 Blood glucose and 45 lactic acid 4.0 AST 37 ALT 38 serum acetone negative EKG tracing personally reviewed by me-normal sinus rhythm Chest x-ray film personally reviewed by me-hyperinflated Assessment and plan: -This is a patient over 2 weeks. Having increasing polyuria, polydipsia some we ight loss. Dry mouth. Patient presented with nonketotic hyperosmolar hyperglycemia. Diagnoses of diabetes type 2. Was given IV fluids and insulin drip. Later today patient will be switched over to metformin. Diabetic diet. Consultation to post framer and dietitian. -Diabetic peripheral neuropathy -Hyperlipidemia, continue Lipitor -GERD continue with chronic -Chronic urinary stress incontinence, continue with oxybutynin -Essential hypertension, switch patient over to NICK inhibitor -Oropharyngeal candidiasis start Diflucan Care was discussed with the patient. Questions answered. Past Medical History Past Medical History: Asthma, CVA/TIA, GERD/Reflux, Hypertension Additional Past Medical History / Comment(s): CVA x2, urinary incontinence History of Any Multi-Drug Resistant Organisms: None Reported Past Surgical History: Hernia Repair, Orthopedic Surgery, Tubal Ligation, Uterine Ablation Additional Past Surgical History / Comment(s): umb. hernia, lt knee bone spurs Past Anesthesia/Blood Transfusion Reactions: No Reported Reaction Past Psychological History: Depression Smoking Status: Current every day smoker Past Alcohol Use History: None Reported Additional Past Alcohol Use History / Comment(s): smoker since 05/22-1 ppd Past Drug Use History: None Reported - Past Family History Mother Family Medical History: No Reported History Medications and Allergies Home Medications Medication Instructions Recorded Confirmed Type Aspirin 325 mg PO DAILY 02/18/19 07/27/20 History Atorvastatin [Lipitor] 20 mg PO HS 02/18/19 07/27/20 History DULoxetine HCL [Cymbalta] 60 mg PO BID 02/18/19 07/27/20 History Furosemide [Lasix] 40 mg PO DAILY 02/18/19 07/27/20 History HYDROcodone/APAP 7.5-325MG [[place] 1 tab PO BID PRN 02/18/19 07/27/20 History 7.5-325] Losartan Potassium [Cozaar] 100 mg PO DAILY 02/18/19 07/27/20 History Oxybutynin Chloride 5 mg PO BID 02/18/19 07/27/20 History Pantoprazole [Protonix] 40 mg PO DAILY 02/18/19 07/27/20 History Potassium Chloride [K-Tab ER] 20 meq PO DAILY 02/18/19 07/27/20 History Propranolol HCl 20 mg PO TID 02/18/19 07/27/20 History amLODIPine [Norvasc] 10 mg PO DAILY 02/18/19 07/27/20 History traMADol HCl [Ultram] 50 mg PO BID PRN 02/18/19 07/27/20 History Cyanocobalamin (Vitamin B-12) 1,000 mcg PO DAILY 07/27/20 07/27/20 History [Vitamin B-12] Nystatin/Triamcin 1 applicate TOPICAL BID PRN 07/27/20 07/27/20 History [Nystatin-Triamcinolone Cream] Gabapentin [Neurontin] 300 mg PO BID 07/28/20 07/28/20 History Allergies Allergy/AdvReac Type Severity Reaction Status Date / Time Penicillins Allergy Anaphylaxis Verified 07/27/20 17:02 shellfish derived [Shellfish] Allergy Anaphylaxis Verified 07/27/20 17:02 Physical Exam Vitals: Vital Signs Temp Pulse Pulse Resp BP BP Pulse Ox 07/28/20 07:34 95 07/28/20 03:39 97.8 F 78 16 108/61 95 07/28/20 02:24 16 07/27/20 23:35 98.2 F 81 16 89/57 96 07/27/20 21:45 98.3 F 99 18 130/81 98 07/27/20 20:47 98.0 F 91 20 130/80 97 07/27/20 20:20 89 20 130/80 98 07/27/20 19:41 89 20 119/72 97 07/27/20 17:00 98.1 F 84 18 124/68 98 07/27/20 15:06 98.1 F 92 18 116/78 98 Intake and Output 07/27/20 07/28/20 07/28/20 22:59 06:59 14:59 Other: Voiding Method Toilet Toilet # Voids 1 Weight 82.372 kg 83.1 kg Results CBC & Chem 7: 07/27/20 15:31 07/27/20 15:31 Labs: Abnormal Lab Results - Last 24 Hours (Table) 07/27/20 07/27/20 07/27/20 Range/Units 15:14 15:14 15:31 WBC 12.4 H (3.8-10.6) k/uL Hct 48.0 H (34.0-46.0) % Neutrophils # 8.6 H (1.3-7.7) k/uL Sodium (137-145) mmol/L Chloride (98-107) mmol/L Creatinine (0.52-1.04) mg/dL Glucose (74-99) mg/dL POC Glucose (mg/dL) >600 H >600 H (75-99) mg/dL Plasma Lactic Acid Juanjose (0.7-2.0) mmol/L AST (14-36) U/L ALT (4-34) U/L Alkaline Phosphatase (38-126) U/L Urine Glucose (UA) (Negative) 07/27/20 07/27/20 07/27/20 Range/Units 15:31 15:31 16:58 WBC (3.8-10.6) k/uL Hct (34.0-46.0) % Neutrophils # (1.3-7.7) k/uL Sodium 125 L (137-145) mmol/L Chloride 85 L (98-107) mmol/L Creatinine 1.12 H (0.52-1.04) mg/dL Glucose 745 H* (74-99) mg/dL POC Glucose (mg/dL) (75-99) mg/dL Plasma Lactic Acid Juanjose 4.0 H* (0.7-2.0) mmol/L AST 37 H (14-36) U/L ALT 38 H (4-34) U/L Alkaline Phosphatase 179 H (38-126) U/L Urine Glucose (UA) 4+ H (Negative) 07/27/20 07/27/20 07/27/20 Range/Units 17:52 18:41 21:51 WBC (3.8-10.6) k/uL Hct (34.0-46.0) % Neutrophils # (1.3-7.7) k/uL Sodium (137-145) mmol/L Chloride (98-107) mmol/L Creatinine (0.52-1.04) mg/dL Glucose (74-99) mg/dL POC Glucose (mg/dL) 472 H 375 H 293 H (75-99) mg/dL Plasma Lactic Acid Juanjose (0.7-2.0) mmol/L AST (14-36) U/L ALT (4-34) U/L Alkaline Phosphatase (38-126) U/L Urine Glucose (UA) (Negative) 07/28/20 07/28/20 Range/Units 02:10 06:30 WBC (3.8-10.6) k/uL Hct (34.0-46.0) % Neutrophils # (1.3-7.7) k/uL Sodium (137-145) mmol/L Chloride (98-107) mmol/L Creatinine (0.52-1.04) mg/dL Glucose (74-99) mg/dL POC Glucose (mg/dL) 293 H 281 H (75-99) mg/dL Plasma Lactic Acid Juanjose (0.7-2.0) mmol/L AST (14-36) U/L ALT (4-34) U/L Alkaline Phosphatase (38-126) U/L Urine Glucose (UA) (Negative) Thrombosis Risk Factor Assmnt - Choose All That Apply Any of the Below Risk Factors Present?: Yes Each Factor Represents 1 point: Age 41-60 years, Obesity (BMI >25) Other Risk Factors: No Other congenital or acquired thrombophilia - If yes, enter type in comment: No Thrombosis Risk Factor Assessment Total Risk Factor Score: 2 Thrombosis Risk Factor Assessment Level: Low Risk
[2020-07-28 20:01] LABS: Glucose,Whole Blood 292 mg/dL (75-99)
[2020-07-28] MEDS: NICOTINE 14MG/24HR PATCH TRANSDERM SCH (20:04)
[2020-07-28] MEDS: ATORVASTATIN 20 MG TAB PO SCH (20:04)
[2020-07-28] MEDS ORDERED: amLODIPine 10 MG TAB PO SCH (21:00)
[2020-07-28] MEDS ORDERED: ASPIRIN 325 MG TAB PO SCH (21:00)
[2020-07-29] MEDS: HYDROcodone/APAP 7.5-325MG 1 EACH TAB PO PRN ×2 (01:45→08:20)
[2020-07-29 02:28] LABS: Glucose,Whole Blood 214 mg/dL (75-99)
[2020-07-29 06:11] LABS: Glucose,Whole Blood 250 mg/dL (75-99)
[2020-07-29] MEDS: metFORMIN 500 MG TAB PO SCH (06:19)
[2020-07-29] MEDS: INSULIN ASPART (NovoLOG) 100 UNIT/ML VIAL SQ SCH ×2 (06:20→12:29)
[2020-07-29] MEDS: OXYBUTYNIN CHLORIDE 5 MG TAB PO SCH (08:13)
[2020-07-29] MEDS: PROPRANOLOL 20 MG TAB PO SCH (08:13)
[2020-07-29] MEDS: DULoxetine HCL 60 MG CAPSULE.DR PO SCH (08:13)
[2020-07-29] MEDS: PANTOPRAZOLE 40 MG TABLET PO SCH (08:13)
[2020-07-29] MEDS: ENOXAPARIN 40 MG/0.4 ML SYRINGE SQ SCH (08:14)
[2020-07-29] MEDS: NICOTINE 14MG/24HR PATCH TRANSDERM SCH (08:14)
[2020-07-29] MEDS ORDERED: FLUCONAZOLE 100 MG TAB PO SCH (09:00)
[2020-07-29] MEDS ORDERED: ASPIRIN 81 MG PO SCH (09:00)
[2020-07-29 09:29] LABS: Cholesterol 162 mg/dL (<200); HDL Cholesterol 38 mg/dL (40-60); Triglycerides 458 mg/dL (<150)
[2020-07-29 10:18] VITALS: TEMP 98.1
[2020-07-29 11:37] LABS: Glucose,Whole Blood 229 mg/dL (75-99)
--- NOTE | 2020-07-29 13:37 | P.PN ---
Subjective Progress Note Date: 07/29/20 Patient is doing much better. Dizziness is completely resolved. Her blurred vision also has improved. No more crisscrossing of her eyes. No new focal symptoms. No headaches. Objective - Vital Signs Vital signs: Vital Signs Temp 98.1 F 07/29/20 08:00 Pulse 80 07/29/20 08:00 Resp 16 07/29/20 08:00 BP 118/75 07/29/20 08:00 Pulse Ox 95 07/29/20 08:00 Intake & Output 07/28/20 07/29/20 07/29/20 18:59 06:59 18:59 Intake Total 712 780 Balance 712 780 Weight 83.1 kg 84.2 kg Intake: Oral 712 780 Other: Voiding Method Toilet Toilet # Voids 2 1 1 - Exam Mental status, speech and language functions are normal. Cranial nerves are normal. Visual jeronimo full. Face is symmetric and muscle strength no drift. No ataxia, sensations normal - Labs CBC & Chem 7: 07/27/20 15:31 07/27/20 15:31 Labs: Abnormal Lab Results - Last 24 Hours (Table) 07/28/20 07/28/20 07/28/20 Range/Units 07:40 17:01 19:52 POC Glucose (mg/dL) 228 H 292 H (75-99) mg/dL Hemoglobin A1c 16.2 H (4.0-6.0) % Triglycerides (<150) mg/dL HDL Cholesterol (40-60) mg/dL 07/29/20 07/29/20 07/29/20 Range/Units 02:26 06:09 07:27 POC Glucose (mg/dL) 214 H 250 H (75-99) mg/dL Hemoglobin A1c (4.0-6.0) % Triglycerides 458 H (<150) mg/dL HDL Cholesterol 38 L (40-60) mg/dL 07/29/20 Range/Units 11:35 POC Glucose (mg/dL) 229 H (75-99) mg/dL Hemoglobin A1c (4.0-6.0) % Triglycerides (<150) mg/dL HDL Cholesterol (40-60) mg/dL Assessment and Plan Assessment: * Lightheadedness, dizziness, blurred vision and visual disturbances likely due to uncontrolled newly diagnosed diabetes. Her blood sugar was 745, and A1c is 16.2. Current neurological examination is nonfocal. * CT head showing small vessel disease, likely from multiple vascular risk factors including long-standing history of hypertension, uncontrolled diabetes, and chronic tobacco use. * Hyperlipidemia Plan: * Continue aspirin 81 mg daily. * Lipid panel revealed cholesterol 162, HDL 38, LDL could not be checked because triglycerides are highly elevated 458. Patient has been started on Lipitor 20 mg. Recommend checking follow-up lipid panel in the 3 months. May need to address hypertriglyceridemia as well * Patient was strongly recommended complete tobacco cessation. * Treatment of diabetes as per IM. * Patient states her visual symptoms and dizziness has improved already. Recommend follow-up director of fundraising to rule out diabetic retinopathy. * Neurologically clear. We'll sign off.
[2020-07-29 15:19] VITALS: BP 117/76; PULSE 78; RESP 18
--- NOTE | 2020-07-30 18:30 | P.DS ---
Providers Date of admission: 07/27/20 17:19 Expected date of discharge: 07/30/20 Attending physician: Ben John Consults: 07/27/20 17:07 Consult Physician Routine Consulting Provider: Stef Murillo Consult Reason/Comments: white matter changes? Do you want consulting provider notified?: Yes Primary care physician: Asif Zhang MD Hospital Course: Chief Complaint: Not feeling well History of presenting complaint: This is a 55-year-old patient of Dr. zhang. Chronic stable medical conditions include peripheral neuropathy with numbness and tingling in the feet, hyperlipidemia, depression, chronic low back pain, GERD, urinary incontinence, hypertension. For quite a few days patient has been generally feeling off. Just not feeling right having increased urine output and feeling very thirsty. Also had some weight loss. Went to see a family doctor. Vision was blurry. No fever no chills. Presented to the ER. Blood glucose was 745. Serum acetone was negative. Patient is put on IV fluids and insulin. Admitted with nonketotic hyperosmolar hyperglycemia. Initially put on insulin drip. Accu-Cheks came down. Put on metformin. I will take educator and dietitian was consulted. Today-feeling much better. Care was discussed with the patient. Questions were answered. Patient to monitor Accu-Cheks at home. Past medical history to include: COPD, prior stroke, GERD, hypertension, urinary incontinence, peripheral neuropathy, hyperlipidemia, depression, low back pain, GERD, hypertension Social history: Long-standing smoker currently down to a few cigarettes a day. Smoked for 46 years. Lives with her and mother. No alcohol Family history: Reviewed, noncontributory to presentation Physical examination: VITAL SIGNS: 98.1, 78, 18, 117/76, 96% on room air GENERAL: Sitting up in bed, comfortable. EYES: Pupils equal. Conjunctiva normal. HEENT: External appearance of nose and ears normal, oral cavity few white spots. NECK: JVD not raised; masses not palpable. HEART: First and second heart sounds are normal; no edema. LUNGS: Respiratory rate normal; clear to auscultation. ABDOMEN: Soft, nontender, liver spleen not palpable, no masses palpable. PSYCH: Alert and oriented x3; mood and affect normal. INVESTIGATIONS, reviewed in the clinical context: July 29: Accu-Cheks to 50, 229 Lipid profile-triglycerides 458 cholesterol 162 HDL 38 WBC 12.4 hemoglobin 13.9 platelets 194 sodium 125 potassium 4.3 creatinine 1.12 Blood glucose and 45 lactic acid 4.0 AST 37 ALT 38 serum acetone negative EKG tracing personally reviewed by me-normal sinus rhythm Chest x-ray film personally reviewed by me-hyperinflated Assessment and plan: - nonketotic hyperosmolar hyperglycemia. -Diagnoses of diabetes type 2. Was given IV fluids and insulin drip. switched over to metformin. -Diabetic peripheral neuropathy -Hyperlipidemia, continue Lipitor -GERD continue with chronic -Chronic urinary stress incontinence, continue with oxybutynin -Essential hypertension, switch patient over to NICK inhibitor -Oropharyngeal candidiasis on Diflucan Disposition: Home Plan - Discharge Summary Discharge Rx Participant: No New Discharge Prescriptions: New Aspirin 81 mg PO DAILY chew Fluconazole [Diflucan] 100 mg PO DAILY #7 tab Nicotine 14Mg/24Hr Patch [Habitrol] 1 patch TRANSDERM DAILY #14 patch Atorvastatin [Lipitor] 40 mg PO HS #30 tablet metFORMIN HCL 1,000 mg PO BID #60 tab Continue traMADol HCl [Ultram] 50 mg PO BID PRN PRN Reason: Pain Propranolol HCl 20 mg PO TID Atorvastatin [Lipitor] 20 mg PO HS amLODIPine [Norvasc] 10 mg PO DAILY Pantoprazole [Protonix] 40 mg PO DAILY HYDROcodone/APAP 7.5-325MG [[place] 7.5-325] 1 tab PO BID PRN PRN Reason: Pain Oxybutynin Chloride 5 mg PO BID DULoxetine HCL [Cymbalta] 60 mg PO BID Cyanocobalamin (Vitamin B-12) [Vitamin B-12] 1,000 mcg PO DAILY Gabapentin [Neurontin] 300 mg PO BID Discontinued Losartan Potassium [Cozaar] 100 mg PO DAILY Furosemide [Lasix] 40 mg PO DAILY Potassium Chloride [K-Tab ER] 20 meq PO DAILY Aspirin 325 mg PO DAILY Nystatin/Triamcin [Nystatin-Triamcinolone Cream] 1 applicate TOPICAL BID PRN PRN Reason: Skin Irritation Discharge Medication List Atorvastatin [Lipitor] 20 mg PO HS 02/18/19 [History] DULoxetine HCL [Cymbalta] 60 mg PO BID 02/18/19 [History] HYDROcodone/APAP 7.5-325MG [[place] 7.5-325] 1 tab PO BID PRN 02/18/19 [History] Oxybutynin Chloride 5 mg PO BID 02/18/19 [History] Pantoprazole [Protonix] 40 mg PO DAILY 02/18/19 [History] Propranolol HCl 20 mg PO TID 02/18/19 [History] amLODIPine [Norvasc] 10 mg PO DAILY 02/18/19 [History] traMADol HCl [Ultram] 50 mg PO BID PRN 02/18/19 [History] Cyanocobalamin (Vitamin B-12) [Vitamin B-12] 1,000 mcg PO DAILY 07/27/20 [History] Gabapentin [Neurontin] 300 mg PO BID 07/28/20 [History] Aspirin 81 mg PO DAILY chew 07/29/20 [Rx] Atorvastatin [Lipitor] 40 mg PO HS #30 tablet 07/29/20 [Rx] Fluconazole [Diflucan] 100 mg PO DAILY #7 tab 07/29/20 [Rx] Nicotine 14Mg/24Hr Patch [Habitrol] 1 patch TRANSDERM DAILY #14 patch 07/29/20 [Rx] metFORMIN HCL 1,000 mg PO BID #60 tab 07/29/20 [Rx] Follow up Appointment(s)/Referral(s): Asif Zhang MD [Primary Care Provider] - 07/30/20 12:00 pm Activity/Diet/Wound Care/Special Instructions: Patient requires glucose testing 1x/day. Patient has non-insulin dependent diabetes Discharge Disposition: HOME SELF-CARE
== END 2020-07-29 15:05 | disposition home or self-care (01) | DRG 638 ==
LOC: EC 15:04 → 3SCARD 17:19
PROVIDERS: ADMIT Hospitalist; ATTEND Hospitalist
DX: E11.65 Type 2 diabetes mellitus with hyperglycemia (principal); B37.0 Candidal stomatitis; Z79.4 Long term (current) use of insulin; J44.9 Chronic obstructive pulmonary disease, unspecified; F17.210 Nicotine dependence, cigarettes, uncomplicated; E11.42 Type 2 diabetes mellitus with diabetic polyneuropathy; E78.5 Hyperlipidemia, unspecified; F32.9 Major depressive disorder, single episode, unspecified; M54.5 Low back pain; K21.9 Gastro-esophageal reflux disease without esophagitis; R32 Unspecified urinary incontinence; I10 Essential (primary) hypertension; M47.9 Spondylosis, unspecified; M48.061 Spinal stenosis, lumbar region without neurogenic claudication; Z79.82 Long term (current) use of aspirin; Z79.899 Other long term (current) drug therapy; Z86.73 Personal history of transient ischemic attack (TIA), and cerebral infarction without residual deficits
CPT/HCPCS: 36415; 70450; 71046; 80053; 80061; 81003; 82009; 83036; 83605; 83735; 84100; 84484; 85025; 85610; 85730; 93005; 94760

== ENCOUNTER → 2020-09-21 | Outpatient (CLI) | payer BC ==
--- NOTE | 2020-09-22 10:49 | MM ---
Reason for exam: screening (asymptomatic). Last mammogram was performed 1 year and 4 months ago. History: Patient is postmenopausal. Physical Findings: A clinical breast exam by your physician is recommended on an annual basis and results should be correlated with mammographic findings. MG Screening Mammo w CAD Bilateral CC and MLO view(s) were taken. Prior study comparison: May 27, 2019, bilateral MG screening mammo w CAD. April 08, 2018, bilateral MG screening mammo w CAD. There are scattered fibroglandular densities. There are benign appearing round calcifications in the right breast. There is chronic nodularity bilaterally. There is no discrete abnormality. ASSESSMENT: Benign, BI-RAD 2 RECOMMENDATION: Routine screening mammogram of both breasts in 1 year.
== END | disposition home or self-care (01) ==
LOC: RADMAMWWP 15:35
PROVIDERS: ATTEND Family Medicine
DX: Z12.31 Encounter for screening mammogram for malignant neoplasm of breast (principal); Z78.0 Asymptomatic menopausal state
CPT/HCPCS: 77067

== ENCOUNTER → 2021-09-28 | Outpatient (CLI) | payer BC ==
--- NOTE | 2021-09-28 17:01 | CA ---
Transthoracic Echo Report Name: Imelda Grijalva Age: 56 Gender: F : 1965 Exam Date: 09/28/2021 15:03 Exam Location: [place] [facility] Ht (in): 69 Wt (lb): 140 Ordering Physician: Asif Zhang MD Attending/Referring Phys: Anne Gould [facility] [employer] Brenda Guerra RDCS Procedure CPT: Indications: R42 Dizziness giddiness Cardiac Hx: HTN, DM , TIA SMOKER [id number]. Technical Quality: Good Contrast 1: N/A Total Dose (mL): Contrast 2: Total Dose (mL): MEASUREMENTS (Male / Female) Normal Values 2D ECHO LV Diastolic Diameter PLAX 3.5 cm 4.2 - 5.9 / 3.9 - 5.3 cm LV Systolic Diameter PLAX 2.8 cm IVS Diastolic Thickness 1.1 cm 0.6 - 1.0 / 0.6 - 0.9 cm LVPW Diastolic Thickness 1.3 cm 0.6 - 1.0 / 0.6 - 0.9 cm LV Relative Wall Thickness 0.7 RV Internal Dim ED PLAX 2.6 cm LA Volume 31.7 cm??? 18 - 58 / 22 - 52 cm??? M-MODE Aortic Root Diameter MM 3.5 cm LA Systolic Diameter MM 3.0 cm LA Ao Ratio MM 0.9 MV E Point Septal Separation 0.3 cm AV Cusp Separation MM 1.9 cm DOPPLER AV Peak Velocity 151.5 cm/s AV Peak Gradient 9.2 mmHg AI Peak Velocity 443.8 cm/s AI Peak Gradient 78.8 mmHg AI Pressure Half Time 499.8 ms MV Area PHT 3.7 cm??? Mitral E Point Velocity 76.1 cm/s Mitral A Point Velocity 138.1 cm/s Mitral E to A Ratio 0.6 MV Deceleration Time 203.0 ms MV E' Velocity 3.9 cm/s Mitral E to MV E' Ratio 19.7 TR Peak Velocity 191.4 cm/s TR Peak Gradient 14.7 mmHg FINDINGS Left Ventricle Left ventricular ejection fraction is estimated at 50-55. Mildly increased left ventricular wall thickness. Right Ventricle Normal right ventricular size and function. Right ventricular systolic pressure within normal limits. Right Atrium Normal right atrial size. Left Atrium Normal left atrial size. Mitral Valve Mild mitral regurgitation. Aortic Valve Trileaflet aortic valve. Mild aortic regurgitation. Tricuspid Valve Mild tricuspid regurgitation. Pulmonic Valve Structurally normal pulmonic valve. Pericardium Echo free space anterior to the right ventricle likely represents a fat pad. Aorta Normal size aortic root and proximal ascending aorta. CONCLUSIONS Normal LV systolic function Mild aortic regurgitation Previewed by: Dr. Rome Crews MD (Electronically Signed) Final Date: 28 Sep 2021 17:00
== END | disposition home or self-care (01) ==
LOC: RADECHMAIN 14:51
PROVIDERS: ATTEND Family Medicine
DX: I35.1 Nonrheumatic aortic (valve) insufficiency (principal); R42 Dizziness and giddiness
CPT/HCPCS: 93306

== ENCOUNTER → 2021-12-22 | Outpatient (CLI) | payer BC ==
--- NOTE | 2021-12-22 14:43 | MR ---
EXAMINATION TYPE: MR brain wo con DATE OF EXAM: 12/22/2021 COMPARISON: Correlation CT 07/27/2020 HISTORY: 56-year-old female with dizziness, and blackout spells, history of CVA. I67.9, unspecified c erebrovascular disease. TECHNIQUE: Multiplanar, multisequence images of the brain and brainstem were acquired without IV con trast. Diffusion weighted imaging is performed. FINDINGS: No evidence for acute infarction, hemorrhage, mass, mass effect, midline shift, herniation, effacemen t of basal cisterns, or extra-axial fluid collection. There is moderate bifrontal cerebral cortical volume loss. No hydrocephalus. Major intracranial flow voids are intact. T2/FLAIR weighted sequences show mild scattered right white matter changes particularly in the periat rial regions of the right greater than left cerebral hemispheres. Patchy signal changes are present i n the bilateral paramedian kar as well. T2* gradient sequence shows no suspicious intracranial susceptibility artifact to suggest prior intra cranial microbleeds. Midline structures demonstrate normal morphology. The craniocervical junction is normal. The visualized sinuses are clear and the globes are intact. IMPRESSION: Moderate bifrontal cerebral cortical atrophy. Mild burden of chronic small vessel ischemic disease. No acute intracranial abnormality seen.
== END | disposition home or self-care (01) ==
LOC: RADMRIMAIN 11:34
PROVIDERS: ATTEND Psychiatry & Neurology Neurology
DX: I67.9 Cerebrovascular disease, unspecified (principal); R41.3 Other amnesia
CPT/HCPCS: 70551

== ENCOUNTER 2022-02-16 11:43 | Day surgery (SDC) | payer BC ==
[~2022-02-16 11:43] MED LIST changes: -LACTATED RINGERS 1,000 ML IV SCH; -LIDOCAINE 1% 20 ML VIAL (10MG/ML) FOR IV START INTRADERMA PRN; +SODIUM CHLORIDE 0.9% 1,000 ML IV SCH
[2022-02-16 12:23] VITALS: BP 151/69; PULSE 88; RESP 16; TEMP 98.9
[2022-02-16] MEDS ORDERED: SODIUM CHLORIDE 0.9% 500 ML 500 ML IV ONE (12:23)
[2022-02-16 12:28] LABS: Glucose,Whole Blood 102 mg/dL (70-110)
--- NOTE | 2022-02-16 18:31 | P.EPPROC ---
- EP Procedure Note Electrophysiology Procedure Note: Diagnosis Recurrent syncope Twelve-lead EKG Sinus mechanism normal CA and left atrial enlargement, Narrow QRS normal ST segments Tilt table test per protocol Baseline blood pressure 145/79 mmHg Baseline heart rate 89 beats a minute Patient was tilted upright at an angle of 70 per protocol No significant change in heart rate and blood pressure The end of the procedure she was laid supine Impression Twelve-lead EKG shows sinus mechanism with left atrial enlargement No evidence for neurocardiogenic syncope on tilt table testing
== END 2022-02-16 14:38 | disposition home or self-care (01) ==
LOC: CATHEP 11:43
PROVIDERS: ATTEND Internal Medicine Clinical Cardiac Electrophysiology
DX: R55 Syncope and collapse (principal); I10 Essential (primary) hypertension; E78.5 Hyperlipidemia, unspecified; Z20.822 Contact with and (suspected) exposure to COVID-19; E11.9 Type 2 diabetes mellitus without complications; F17.200 Nicotine dependence, unspecified, uncomplicated; Z71.6 Tobacco abuse counseling; Z79.84 Long term (current) use of oral hypoglycemic drugs; Z79.82 Long term (current) use of aspirin; Z79.899 Other long term (current) drug therapy; Z88.0 Allergy status to penicillin
CPT/HCPCS: 87635; 93660

== ENCOUNTER 2022-11-03 10:20 | Day surgery (SDC) | payer BC ==
[2022-10-31 11:55] VITALS: BMI 24.7
[~2022-11-03 10:20] MED LIST changes: +LACTATED RINGERS 1,000 ML IV SCH; -SODIUM CHLORIDE 0.9% 1,000 ML IV SCH
[2022-11-03 10:47] VITALS: TEMP 97.2
[2022-11-03 11:02] LABS: Glucose,Whole Blood 101 mg/dL (70-110)
[2022-11-03] MEDS ORDERED: LIDOCAINE 2% INJ 20 MG/ML (2 ML VIAL) ONE (11:53)
[2022-11-03] MEDS ORDERED: PROPOFOL 10 MG/ML 20 ML VIAL IV ONE (11:53)
--- NOTE | 2022-11-03 12:15 | P.PCN ---
Date of Procedure: 11/03/22 Procedure(s) Performed: Brief history: Patient is a pleasant 57-year-old white female scheduled for an elective upper endoscopy as well as colonoscopy as a part of evaluation of anemia and chronic diarrhea for the last several months duration Procedure performed: Esophagogastroduodenoscopy with biopsy Colonoscopy and biopsy Preoperative diagnosis: Macrocytic anemia Chronic diarrhea Anesthesia: [facility] Procedure: After informed consent was obtained from the patient was brought into the endoscopy unit and IV sedation was administered by anesthesia under continuous monitoring. Initially upper endoscopy was done. The Olympus GF 160 video endoscope was inserted inserted into the mouth and esophagus intubated without any difficulty and was gradually advanced into the stomach and duodenum and carefully examined. The bulb and second part of the duodenum appeared normal. Biopsies were done from the duodenum to rule out celiac disease. The scope was then withdrawn into the stomach adequately insufflated with air and upon careful examination the antrum a small 5 mm polyp that was biopsied. Mucosa of the body, cardia and fundus appeared normal. The scope was then withdrawn into the esophagus. The GE junction was located at 40 cm to the incisors. It appeared regular with no erythema erosions or ulcerations. Rest of the esophagus appeared normal. Patient tolerated the procedure well. At this time the patient continued to remain sedation. Initial digital rectal examination was normal. Olympus CF 160 video colonoscope was then inserted into the rectum and gradually advanced to the cecum without any difficulty. Careful examination was performed as the scope was gradually being withdrawn. The prep was excellent. The cecum, ascending colon, transverse colon, descending colon, sigmoid colon and rectum appeared normal. and biopsies were done from ascending and descending colon to rule out microscopic/collagenous colitis scattered sigmoid diverticulosis. Retroflexion was performed in the rectum and no lesions were noted. Patient tolerated the procedure well. Impression: 1. Upper endoscopy revealed 5-6 mm gastric antral polyp status post biopsy 2. Colonoscopy is within normal limits with no evidence of colorectal neoplasia. Scattered sigmoid diverticulosis Recommendations: Findings of this examination were discussed with the patient as well as her family. She was advised to follow with the biopsy results. to be seen in office in 3-4 weeks.
[2022-11-03] MEDS ORDERED: ONDANSETRON 4 MG/2 ML VIAL ONE (12:19)
[2022-11-03] MEDS ORDERED: ONDANSETRON 4 MG/2 ML VIAL IVP ONE (12:20)
[2022-11-03 13:14] VITALS: BP 146/55; PULSE 90; RESP 17
== END 2022-11-03 13:30 | disposition home or self-care (01) ==
LOC: ORWHC2ENDO 10:20
PROVIDERS: ATTEND Internal Medicine Gastroenterology
DX: K52.9 Noninfective gastroenteritis and colitis, unspecified (principal); K57.30 Diverticulosis of large intestine without perforation or abscess without bleeding; K31.7 Polyp of stomach and duodenum; K29.50 Unspecified chronic gastritis without bleeding; J45.909 Unspecified asthma, uncomplicated; F17.200 Nicotine dependence, unspecified, uncomplicated; E11.9 Type 2 diabetes mellitus without complications; Z86.73 Personal history of transient ischemic attack (TIA), and cerebral infarction without residual deficits; F32.A Depression, unspecified; K21.9 Gastro-esophageal reflux disease without esophagitis; Z79.51 Long term (current) use of inhaled steroids; Z79.1 Long term (current) use of non-steroidal anti-inflammatories (NSAID); Z79.899 Other long term (current) drug therapy; Z88.0 Allergy status to penicillin; Z91.013 Allergy to seafood
CPT/HCPCS: 88305; 45380; 43239; J2405; J2704; J2001

== ENCOUNTER → 2023-01-23 | Outpatient (CLI) | payer BC ==
--- NOTE | 2023-01-24 11:45 | MR ---
EXAMINATION TYPE: MR brain/cspine wo DATE OF EXAM: 01/23/2023 9:55 PM CLINICAL INDICATION:Female, 57 years old with history of M50.01, Ataxia, Leg weakness, Numbness from head to toe, Headaches, cervical radiculopathy COMPARISON: 01/01/2012, CT 07/27/2020 brain 12/22/2021. TECHNIQUE: Multi planar, multi sequence imaging was performed through the brain including: T1, T2, Inversion rec overy, Diffusion weighted imaging, and gradient echo imaging. No gadolinium was given. Multi planar, multi sequence imaging was performed utilizing: T1-weighted, T2-weighted, and turbo inv ersion recovery imaging of the cervical spine. IV Contrast: None FINDINGS: Mild cerebral atrophy with proportional dilation of the ventricular system. Patchy areas of high T2 s ignal intensity are seen within the periventricular white matter. Midline structures show no abnormal ity. Diffusion-weighted imaging shows no evidence of restricted diffusion. The susceptibility weighte d images do not reveal any evidence for micro-hemorrhage. The bone marrow signal is within normal limits. Paranasal sinuses and mastoid air cells: No significant paranasal sinus disease. Visualized orbits: Orbital contents are intact. Alignment: The cervical vertebral bodies have preserved heights. Alignment is within normal limits gi jessica patient positioning. Bones: Scattered Modic endplate changes with osteophytes and disc space narrowing. Multilevel degener ative disc disease is noted and most pronounced at the C3-C5 vertebral levels. Cord: The spinal cord is unremarkable with regards to their signal intensity and morphology. Discs: Multilevel disc desiccation is present. C2-C3: No significant disc pathology. The spinal canal is patent. No neural foraminal stenosis. C3-C4: A disc osteophyte complex is present which impresses upon the anterior spinal cord with mild s lois canal stenosis. Bilateral facet and uncovertebral joint arthropathy are present with mild left and moderate right neural foraminal stenosis. C4-C5: A disc osteophyte complex is present which impresses upon the spinal cord and displaces it pos teriorly with moderate spinal canal stenosis. Bilateral facet and uncovertebral joint arthropathy ar e present with moderate to severe right and moderate left neural foraminal stenosis. C5-C6: A disc osteophyte complex is present which displaces the cord posteriorly with mild to moderat e spinal canal stenosis. Bilateral facet and uncovertebral joint arthropathy are present with mild t o moderate right and moderate to severe left neural foraminal stenosis. C6-C7: No significant disc pathology. The spinal canal is patent. No neural foraminal stenosis. C7-T1: No significant disc pathology. The spinal canal is patent. No neural foraminal stenosis. Other: None. IMPRESSION: Brain: 1. No evidence of intracranial mass or acute/subacute infarct. 2. Nonspecific white matter changes, likely secondary to small vessel ischemic disease. Cervical spine: Multilevel disc degeneration with associated osteoarthritic changes worse at C3-C5 with moderate spin al canal stenosis at C4-C5. No evidence for herniation. Neural foraminal stenosis as described above worse at C4-C5 moderate severe right and moderate left and moderate severe left C5-C6.
== END | disposition home or self-care (01) ==
LOC: RADMRIMAIN 21:15
PROVIDERS: ATTEND Psychiatry & Neurology Neurology
DX: M50.01 Cervical disc disorder with myelopathy, high cervical region (principal); D33.2 Benign neoplasm of brain, unspecified; M48.02 Spinal stenosis, cervical region; M99.71 Connective tissue and disc stenosis of intervertebral foramina of cervical region
CPT/HCPCS: 70551; 72141